=== PATIENT | female | born 1945 | race Caucasian/White ===

== ENCOUNTER 2017-03-24 09:04 | Outpatient (CLI) | payer MEDICARE, BC | END 2017-03-24 09:05 | disposition home or self-care (01) | LOC: BICMAMMO 09:04 | PROVIDERS: ATTEND Obstetrics & Gynecology | DX: Z12.31 Encounter for screening mammogram for malignant neoplasm of breast (principal) | CPT/HCPCS: 77063; 77067 ==

== ENCOUNTER 2018-03-28 07:45 | Outpatient (CLI) | payer MEDICARE, BC | END 2018-03-28 07:46 | disposition home or self-care (01) | LOC: BICMAMMO 07:45 | PROVIDERS: ATTEND Obstetrics & Gynecology | DX: Z12.31 Encounter for screening mammogram for malignant neoplasm of breast (principal); R92.1 Mammographic calcification found on diagnostic imaging of breast | CPT/HCPCS: 77063; 77067 ==

== ENCOUNTER 2020-02-21 15:17 | Outpatient (CLI) | payer MEDICARE, BC ==
--- NOTE | 2020-02-21 16:01 | BD ---
Exam: DEXA Bone Density 02/21/20 HISTORY: Postmenopausal screening for osteoporosis. FINDINGS: Lumbar Spine: BMD (g/cm2) T-SCORE Z-SCORE L1 1.000 0.1 2.1 L2 1.020 -0.1 2.2 L3 1.108 0.2 2.6 L4 1.009 0.5 2.0 L1-L4 1.034 -0.1 2.2 Femoral Neck: 0.828 -0.2 1.8 Total Femur: 0.964 0.2 1.8 There has been interval improvement of 4% in the BMD of the lumbar spine and improvement of 2.2% in t he BMD of the proximal femur since 03/23/16. Impression: Normal BMD. POS: AH
== END 2020-02-21 15:18 | disposition home or self-care (01) ==
LOC: BICMAMMO 15:17
PROVIDERS: ATTEND Obstetrics & Gynecology
DX: Z13.820 Encounter for screening for osteoporosis (principal)
CPT/HCPCS: 77080

== ENCOUNTER 2022-03-30 14:38 | Outpatient (CLI) | payer MEDICARE, BC | END 2022-03-30 14:39 | disposition home or self-care (01) | LOC: BICMAMMO 14:38 | PROVIDERS: ATTEND Family Medicine | DX: Z13.820 Encounter for screening for osteoporosis (principal); N95.9 Unspecified menopausal and perimenopausal disorder | CPT/HCPCS: 77080 ==

== ENCOUNTER 2022-04-02 09:56 | Outpatient (CLI) | payer MEDICARE, BC | END 2022-04-02 09:57 | disposition home or self-care (01) | LOC: BICRAD 09:56 | PROVIDERS: ATTEND Family Medicine | DX: R05.1 Acute cough (principal) | CPT/HCPCS: 71046 ==

== ENCOUNTER 2023-04-14 14:40 | Outpatient (CLI) | payer MEDICARE, OTHER | END 2023-04-14 14:41 | disposition home or self-care (01) | LOC: BICMAMMO 14:40 | PROVIDERS: ATTEND Family Medicine | DX: Z12.31 Encounter for screening mammogram for malignant neoplasm of breast (principal) | CPT/HCPCS: 77063; 77067 ==